=== PATIENT | female | born 1950 | race Caucasian/White ===

== ENCOUNTER 2017-07-22 12:28 | Day surgery (SDC) | payer MEDICARE, OTHER ==
[~2017-07-22 12:28] MED LIST: RINGER'S SOLUTION,LACTATED 1,000 ML IV PRN
[2017-07-22] MEDS ORDERED: RINGER'S SOLUTION,LACTATED 1,000 ML IV ONE (13:44)
[2017-07-22] MEDS ORDERED: RINGER'S SOLUTION,LACTATED 1,000 ML IV PRN (14:19)
[2017-07-22] MEDS ORDERED: PANTOPRAZOLE SODIUM 40 MG in NORMAL SALINE 100 ML IV ONE (14:19)
[2017-07-22] MEDS ORDERED: PANTOPRAZOLE SODIUM 40 MG/100 ML PIGGYBACK IV ONE (14:51)
[2017-07-22 15:31] VITALS: BP 138/61
--- NOTE | 2017-07-22 19:48 | OR ---
Operative Report - Dictated Report Narrative: Operative Report Date of operation: 07/22/2017 Preoperative diagnosis: History of Dumont's esophagus Postoperative diagnosis: Findings compatible with Dumont's esophagus and gastropathy (pathology and CLOtest pending). Hiatal hernia Operation: EGD with biopsies Surgeon: Dr Morales Anesthesia: TWYLA ANTHONY CRNA Indications for procedure: The patient is a 67-year-old female referred by Dr. Angela Dunaway. She had Dumont's esophagus without dysplasia on EGD in 2006 for severe heartburn. She currently has no heartburn with omeprazole however returns immediately when she stops the medication. She is brought for surveillance Findings: Findings compatible with Dumont's esophagus. Gastropathy ( pathology and CLOtest pending) Narrative of procedure: The patient was identified preoperatively, and prior to the administration of anesthetic a multidisciplinary timeout was observed With the patient in the recumbent position, a bite-block was placed, intravenous sedation administered, and the patient's eyes covered with a towel. The flexible fiberoptic gastroscope was advanced into the posterior pharynx which appeared normal. The supraglottic larynx appeared normal. The cords appeared normal, moved well, and opposed in the midline. The scope was advanced under direct vision into the proximal esophagus which appeared normal. The esophagus appeared freely distensible with normal mucosa. The esophageal mucosa appeared normal down to the gastroesophageal junction which was noninflamed however there were several isolated islands of mucosa indicating Barretts esophagus. There was a sliding hiatal hernia. The GE junction appeared normally distensible. The scope was advanced into the stomach proper which was insufflated with air. There was cuellar gastric erythema with several fundic polyps but no irena ulcers or neoplastic lesions were appreciated including a retroflex view of the gastric fundus which did demonstrate the hiatal hernia but revealed no additional lesions. The pylorus appeared patent. The scope was advanced into the duodenal bulb which appeared normal. The scope was advanced further to the horizontal portion of the duodenum which appeared normal, specifically the villous architecture appeared well preserved and clear bile was present. The scope was slowly withdrawn through the duodenal bulb with confirmation that no active ulcer was present. The scope was withdrawn into the stomach and international representative biopsies of gastric mucosa obtained for CLOtest and pathology. The biopsy sites were seen to be hemostatic. The scope was withdrawn to above the GE junction which was biopsied to include the transition zone. The biopsy sites were seen to be hemostatic. The insufflated air was removed, the scope withdrawn from the patient, and the procedure terminated. The patient tolerated the anesthetic and procedure well without complication and was transferred back to the ambulatory surgery area awake and in stable condition. The patient remained stable throughout a period of postoperative observation, was able to tolerate po intake, and was up without assistance. I shared the operative findings with her, and she was given copies of the photographs which appear in the medical record. She was discharged home with instructions not to engage in hazardous activity today, but may return to normal activity tomorrow and advance diet as tolerated. She was given a single dose of Protonix IV prior to discharge. She is to continue medications as listed in the history and physical exam. I made arrangements to contact the patient with the biopsy reports and will make further recommendation based upon that result. Reviewed and electronically signed
== END 2017-07-22 12:29 | disposition home or self-care (01) ==
LOC: AMB 12:28
PROVIDERS: ATTEND Surgery
PROC: 0DB68ZX Excision of Stomach, Via Natural or Artificial Opening Endoscopic, Diagnostic (ICD-10-PCS; 2017-07-22)
PROC: 0DB48ZX Excision of Esophagogastric Junction, Via Natural or Artificial Opening Endoscopic, Diagnostic (ICD-10-PCS; principal; 2017-07-22 13:00)
DX: K29.70 Gastritis, unspecified, without bleeding (principal); K44.9 Diaphragmatic hernia without obstruction or gangrene; K21.9 Gastro-esophageal reflux disease without esophagitis; I50.30 Unspecified diastolic (congestive) heart failure; E78.00 Pure hypercholesterolemia, unspecified; K58.9 Irritable bowel syndrome, unspecified; G47.33 Obstructive sleep apnea (adult) (pediatric); E53.8 Deficiency of other specified B group vitamins; Z68.29 Body mass index [BMI] 29.0-29.9, adult

== ENCOUNTER 2017-07-29 08:05 | Day surgery (SDC) | payer MEDICARE, OTHER ==
[~2017-07-29 08:05] MED LIST changes: +ACETAMINOPHEN 325 MG TABLET PO PRN; +ACETYLCHOLINE CHLORIDE 20 DROP KIT IO PRN; +BUPIVACAINE HCL/PF 30 ML VIAL IJ PRN; +CYCLOPENTOLATE HCL 20 DROP BTL LEFTEYE PRN; +DEXTROSE 5%-0.5 NORMAL SALINE 1,000 ML IV PRN; +EPINEPHrine 1 MG/ML AMPUL IO PRN; +HYALURONATE SODIUM 0.4 ML DISP.SYRIN IO PRN; +HYALURONATE SODIUM 0.85 ML DISP.SYRIN IO PRN; +LIDOCAINE HCL/PF 200 MG/5 ML AMPUL TP PRN; +LIDOCAINE HCL/PF 5 ML VIAL IO PRN; +NORMAL SALINE 3 ML BOX IV PRN; -RINGER'S SOLUTION,LACTATED 1,000 ML IV PRN; +TETRACAINE HCL 150 DROP BTL OP PRN
[2017-07-29] MEDS: PHENYLEPHRINE HCL 50 DROP BTL LEFTEYE PRN ×2 (08:42→08:52)
[2017-07-29] MEDS: TROPICAMIDE 150 DROP BTL LEFTEYE PRN ×2 (08:42→08:54)
[2017-07-29] MEDS ORDERED: TROPICAMIDE 150 DROP BTL LEFTEYE ONE (09:04)
[2017-07-29] MEDS ORDERED: PHENYLEPHRINE HCL 50 DROP BTL LEFTEYE ONE (09:04)
[2017-07-29] MEDS ORDERED: RINGER'S SOLUTION,LACTATED 1,000 ML IV ONE (09:16)
[2017-07-29 11:14] VITALS: BP 110/67
== END 2017-07-29 08:06 | disposition home or self-care (01) ==
LOC: AMB 08:05
PROVIDERS: ATTEND Ophthalmology
PROC: 08RK3JZ Replacement of Left Lens with Synthetic Substitute, Percutaneous Approach (ICD-10-PCS; principal; 2017-07-29 09:25)
DX: H26.8 Other specified cataract (principal); I50.30 Unspecified diastolic (congestive) heart failure; K21.9 Gastro-esophageal reflux disease without esophagitis; E78.00 Pure hypercholesterolemia, unspecified; G47.33 Obstructive sleep apnea (adult) (pediatric); E53.8 Deficiency of other specified B group vitamins; Z68.29 Body mass index [BMI] 29.0-29.9, adult

== ENCOUNTER 2019-08-04 08:32 | Inpatient (IN) ==
--- NOTE | 2019-07-29 07:56 | ANES ---
Anesthesia Pre Procedure Eval HOME MEDICATIONS Cetirizine HCl [Zyrtec] 10 mg PO DAILY 07/18/17 [Last Taken 07/15/18] Cholecalciferol (Vitamin D3) [Vitamin D] 5,000 unit PO DAILY 07/18/17 [Last Taken 07/15/18] Cyanocobalamin (Vitamin B-12) [Vitamin B-12] 1,000 mcg PO DAILY 07/18/17 [Last Taken 07/15/18] Dorzolamide HCl [Trusopt] 1 drp OP TID 07/18/17 [Last Taken 07/15/18] Multivitamins [Multivitamin Nolan] 1 cap PO DAILY 07/18/17 [Last Taken 07/15/18] psyllium seed (sugar) 1 tbs PO DAILY g 06/11/18 [Last Taken 07/15/18] cholestyramine-aspartame 4 gram oral powder 4 g PO DAILY #210 g 12/15/18 [Last Taken Unknown] furosemide 40 mg tablet 40 mg PO DAILY PRN #20 tab 01/07/19 [Last Taken Unknown] pentosan polysulfate sodium 100 mg capsule 100 mg PO BID #60 cap 01/07/19 [Last Taken Unknown] oxybutynin chloride 5 mg tablet 5 mg PO DAILY #30 tab 01/19/19 [Last Taken Unknown] simvastatin 10 mg tablet 10 mg PO DAILY #90 tab 02/10/19 [Last Taken Unknown] omeprazole 20 mg tablet,delayed release 20 mg PO DAILY tab 07/24/19 [Last Taken Unknown] Allergies/Adverse Reactions: Allergies Allergy/AdvReac Type Severity Reaction Status Date / Time amitriptyline AdvReac Mild dry mouth, Verified 07/24/19 14:02 no taste morphine AdvReac Mild n/v Verified 07/24/19 14:02 oxybutynin AdvReac Mild dry mouth Verified 07/24/19 14:02 Penicillins AdvReac Mild itchy, rash Verified 07/24/19 14:02 nuts Allergy Severe tongue Uncoded 07/16/18 09:08 swells - Planned Procedure Planned Procedure: Right Arthroplasty Total Knee Medication List Reviewed:: Yes Allergies Verified: Yes Medical History (Last Reviewed 07/29/19 @ 07:54 by Freddy Fernandez CRNA) Bilateral primary osteoarthritis of knee (Chronic) Insomnia (Chronic) Bilateral knee pain (Chronic) Low back pain (Chronic) Overactive bladder (Chronic) Vitamin B12 deficiency (Chronic) Vitamin D deficiency (Chronic) Diastolic heart failure (Chronic) Echo 12/05/17: EF 60%, mild LVH, RV mild dilated, mild TR, pulm HTN with RVSP 47, trace KS and diastolic dysfunction. Pulmonary HTN (Chronic) VERONICA on CPAP (Chronic) 9 cm H2O, heated humidification comfort technology Hyperlipidemia (Chronic) GERD (gastroesophageal reflux disease) (Chronic) Influenza vaccination declined Onset Date: ~06/11/18 will receive at pharmacy dysgenusia Onset Date: 02/16/14 Dumont's esophageal ulceration Onset Date: Unknown DJD (degenerative joint disease) Onset Date: Unknown Diastolic heart failure Onset Date: ~2012 Eczema Onset Date: Unknown Gastroesophageal reflux Onset Date: Unknown Glaucoma Onset Date: Unknown Hernia, hiatal Onset Date: Unknown Hypercholesterolemia Onset Date: Unknown Irritable bowel syndrome Onset Date: 04/16/16 VERONICA on CPAP Onset Date: 12/12/17 Obstructive sleep apnea Onset Date: 03/25/13 Overactive bladder Onset Date: Unknown Pulmonary HTN Onset Date: 12/12/17 Rhinitis, allergic Onset Date: 07/27/16 Rhinitis, chronic Onset Date: 07/27/16 Venous insufficiency Onset Date: 12/01/14 Vitamin B12 deficiency Onset Date: 04/06/13 Calculus of kidney Onset Date: Unknown 1991,1994,1997 Cataract Onset Date: Unknown bilateral, resolved Cystitis Onset Date: 06/01/11 Diverticulitis of colon Onset Date: Unknown Edema Onset Date: 12/01/14 Gastritis Onset Date: Unknown Lymphadenopathy of left cervical region Onset Date: 01/12/14 Sinusitis, acute Onset Date: 08/03/15 Smell or taste sensation disturbance Onset Date: 10/07/13 Tendinitis Onset Date: 12/05/13 Surgical History (Last Reviewed 07/29/19 @ 07:54 by Freddy Fernandez CRNA) H/O arthroscopic knee surgery Onset Date: 07/24/05 Dr Metz-left H/O colposcopy with cervical biopsy Onset Date: 05/08/06 dr. chen- benign gastric mucosa, moderate chronic gastritis, benign sigmoid- rectum mucosa, mild chronic inflammation History of cataract extraction Onset Date: ~07/29/17 Dr. Webb. bilateral History of colonoscopy Onset Date: 07/16/18 05/08/06 Antoinette-benign sigmoid rectum mucosa. 8/25/08 Andrew-diverticulosis. Recheck 7-10 yrs. 07/16/18 Andrew-sigmoid diverticulosis. Recheck 10 yrs. History of esophagogastroduodenoscopy (EGD) Onset Date: 07/22/17 Antoinette-04/2006 Dumont's, no dysplasia. 05/07/07 no dysplasia. 05/18/09-no dysplasia. Andrew-07/22/17-clotest negative. Mod gastritis. History of salpingo-oophorectomy Onset Date: ~2000 bilateral History of total abdominal hysterectomy Onset Date: ~10/2000 Status post tonsillectomy and adenoidectomy Onset Date: Unknown Tubal ligation status Onset Date: ~1975 dilation and curretage Onset Date: 2000 1984, 10/2000 Family History (Last Reviewed 07/29/19 @ 07:54 by Freddy Fernandez CRNA) Brother Alive and well Father , age 65-lung cancer Cancer lung cancer Mother , age 88-COPD COPD (chronic obstructive pulmonary disease) Sister Alive and well Daughter Alive and well Son Alive and well - Family Anesthesia History Family History:: no untoward family reactions to anesthesia - Airway/Neck/Teeth Within Normal Limits:: Yes Teeth Condition: intact Neck Exam: limited range of motion Mallampatti Score: 3 Thyromental (T-M) distance: > 6 cm Mandibulo Hyoid distance: > 3 cm - Respiratory Respiratory Physical: lungs clear Smoking Status: Never smoker Sleep Apnea currently treated: Yes Sleep Apnea by current assessment: Yes - Cardiovascular Tolerate Activity: Fair Heart Sounds: S1 & S2, Regular - Anesthesia Assessment and Plan ASA Class: PS, II Anesthesia Type Plan: Spinal - rt adductor canal block for postop analgesia Planned difficult intubation/equipment available: No
[~2019-08-04 08:32] MED LIST changes: -ACETAMINOPHEN 325 MG TABLET PO PRN; -ACETYLCHOLINE CHLORIDE 20 DROP KIT IO PRN; -BUPIVACAINE HCL/PF 30 ML VIAL IJ PRN; -CYCLOPENTOLATE HCL 20 DROP BTL LEFTEYE PRN; -DEXTROSE 5%-0.5 NORMAL SALINE 1,000 ML IV PRN; -EPINEPHrine 1 MG/ML AMPUL IO PRN; -HYALURONATE SODIUM 0.4 ML DISP.SYRIN IO PRN; -HYALURONATE SODIUM 0.85 ML DISP.SYRIN IO PRN; +ISOPROPYL ALCOHOL 480 APPL BTL MC ONE; -LIDOCAINE HCL/PF 200 MG/5 ML AMPUL TP PRN; -LIDOCAINE HCL/PF 5 ML VIAL IO PRN; -NORMAL SALINE 3 ML BOX IV PRN; +ROPIVACAINE HCL/PF 100 MG, EPINEPHrine 0.2 MG, KETOROLAC TROMETHAMINE 30 MG in NORMAL S... IJ PRN; -TETRACAINE HCL 150 DROP BTL OP PRN; +TRANEXAMIC ACID 1,000 MG in NORMAL SALINE 100 ML IV PRN; +ceFAZolin SODIUM 1 GM VIAL IV PRN; +ceFAZolin SODIUM 1 GM VIAL ONE
[2019-08-04] MEDS: RINGER'S SOLUTION,LACTATED 1,000 ML IV PRN ×3 (09:10→12:37)
[2019-08-04] MEDS ORDERED: fentaNYL CITRATE/PF 50 MCG/ML AMPUL ONE (10:17)
[2019-08-04] MEDS ORDERED: ONDANSETRON HCL/PF 2 MG/ML VIAL ONE (10:17)
[2019-08-04] MEDS ORDERED: LIDOCAINE HCL 20 ML VIAL ONE (10:17)
[2019-08-04] MEDS ORDERED: BUPIVACAINE HCL/EPINEPHRINE 50 ML VIAL ONE (10:18)
[2019-08-04] MEDS ORDERED: PROPOFOL VIAL IV ONE (10:18)
[2019-08-04] MEDS ORDERED: ACETAMINOPHEN 500 MG TABLET PO PRN (13:22)
[2019-08-04] MEDS ORDERED: HYDROmorphone HCL 1 MG/ML DISP.SYRIN IV PRN (13:22)
[2019-08-04] MEDS ORDERED: MAGNESIUM HYDROXIDE 30 ML UDC PO PRN (13:22)
[2019-08-04] MEDS ORDERED: MAG HYDROX/ALUMINUM HYD/SIMETH 30 ML UDC PO PRN (13:22)
[2019-08-04] MEDS ORDERED: NORMAL SALINE 1,000 ML IV PRN (13:22)
[2019-08-04] MEDS ORDERED: FUROSEMIDE 40 MG TABLET PO PRN (13:24)
--- NOTE | 2019-08-04 13:53 | ANES ---
Post Anesthesia Discharge - Transfer of Care Transfer of Care handoff given to nurse: Yes - Discharge from PACU Discharge from PACU when meets criteria: Yes - Discharge to ASU Discharge to ASU-no complications/pt stable: Yes
--- NOTE | 2019-08-04 13:55 | ANES ---
Anesthesia Procedure Note Procedure Note: ANESTHESIA PROCEDURE NOTE Date of Procedure: 08/04/2019 Time of procedure: 08/19/2004. Performed by: Josh San CRNA Brick Chimney Supervisor: None. Preprocedure diagnosis: Right knee degenerative joint disease. Post procedure diagnosis: Same. Procedure: Right ultrasound guided adductor canal block for postoperative analgesia. Indications: The patient is a 69-year-old female, requesting right ultrasound- guided abductor canal nerve block for postoperative analgesia related to right total knee arthroplasty. Findings: See below. Details of the procedure: The tissue over the intended target site was cleansed with ChloraPrepand draped in a sterile fashion. 2 ml Lidocaine 1 % was infiltrated to the skin and subcutaneous tissue at the intended target site. Under sterile technique and ultrasound guidance a 20-gauge block needle was inserted through the right sartorius muscle to the saphenous nerve just anterior and medial to the superficial femoral artery and vein. 15 mL's of 0.5% bupivacaine plus epinephrine 1-200,000 was injected after negative aspiration for blood. Needle tip and spread of local anesthetic surrounding the saphenous nerve was observed throughout the injection with real time ultrasound visualization. The needle was then removed intact. No complications were noted. The images were retained in the Hospital medical database. EBL: Minimal. Fluids: N/A. Specimen: N/A. Post procedure condition: The patient tolerated the procedure well. No complications were noted. Thank you for this consultation. Josh San CRNA
[2019-08-04] MEDS: oxyCODONE HCL/ACETAMINOPHEN 1 TAB TABLET PO PRN ×2 (14:59→20:10)
[2019-08-04] MEDS: DORZOLAMIDE HCL 100 DROP BTL OP SCH (16:42)
[2019-08-04] MEDS ORDERED: METOPROLOL TARTRATE 25 MG TABLET PO ONE (17:40)
--- NOTE | 2019-08-04 18:13 | OR ---
Operative Report - Dictated Report Narrative: Date: 08/04/2019 Preoperative diagnosis: Right knee degenerative joint disease. Postoperative diagnosis: Right knee degenerative joint disease. Procedure: Right total knee arthroplasty. Surgeon: Jimmie Caballero M.D. Act Tutor: Vianca Ferguson PA-C Anesthesia: Spinal with regional block and local periarticular joint injection. Complications: None Specimens: Bone for disposal. Estimated blood loss: Minimal. Tourniquet time: 61 minutes at 275 millimeters of mercury. Retained implants: Depuy Attune size 5 standard lugged cemented posterior stabilized femoral component. Size 5 rotating bearing cemented tibial platform. 5 by 6 millimeter posterior stabilized cross-linked tibial insert. 35 millimeter medialized patella button. Indications: Marianna is a 69-year-old female who has been followed in my clinic for period of time with significant complaints of right knee pain consistent with arthritic changes. They had failed conservative measures including but not limited to activity modification, passage of time, medications, and other conservative measures. Patient wished to proceed with surgical treatment. The risks, benefits, and alternatives were discussed in clinic. The risks of , blood clots, bleeding, infection, nerve/tendon blood vessel/ injury, malposition of components, intraoperative fracture, postoperative limited range of motion, persistent pain, failure of components, and need for additional procedures. Patient wished to proceed consent was obtained after answering all questions. Procedure: After marking the correct extremity on the floor, the patient was taken to the operating room. A timeout was performed. IV antibiotics co nsisting of 1 g of Ancef were administered prior to the procedure. A regional followed by spinal anesthetic was induced by anesthesia. on the operative table with all bony prominences well-padded. Zee catheter was placed and a bump was placed under the operative side buttock. SCDs and VIANCA hose were utilized on the nonoperative leg. A well-padded tourniquet was applied to the operative thigh. The operative leg was then pre-scrubbed with alcohol prepped and draped in a standard sterile fashion. After exsanguinating the extremity with an Esmarch bandage, the tourniquet was inflated. After marking out the anterior knee for standard incision centered over the patella, the skin was incised and dissected down to the joint retinaculum. The joint retinaculum was marked out as well as the horizontal axis of the patella, and a standard medial parapatellar arthrotomy was then made. The most proximal aspect of the quadriceps tendon and the patella tendon insertion were protected from release. A partial synovectomy was performed as well as a resection of the infrapatellar fat pad. The distal femoral fat pad proximal to the trochlea was also resected using cautery. The soft tissues were elevated off the medial aspect of the proximal tibia using a Mendoza elevator ensuring that we did not transect the medial collateral ligament. Upon initial evaluation range of motion was approximately 0 degrees to 130 degrees of flexion. There were signs of advanced arthrosis in the medial and patellofemoral joint spaces. There were large marginal osteophytes which were removed with a rongeur. The knee was hyperflexed and the patella was tucked laterally. Protecting the surrounding soft tissues with Homans, an entry drill was placed down the femoral canal using Whitesides line for guidance into the entry point. The intramedullary femoral alignment sofia was utilized in order to cut the distal femur in 5 of valgus resecting 9 millimeters of bone. Next the distal femur was sized to a size 5 standard. An anterior referencing guide was utilized to place the distal femoral cutting block in 3 of external rotation. This was pinned into place. The rotation was confirmed both visually and based on anatomic landmarks. The 4 in 1 cutting jig of the appropriate size was utilized in order to make all bony cuts. Retractors were utilized in order to protect surrounding soft tissues. This cut did not result in any excessive notching. We then cut the box centered over the distal femur. This allowed for resection of the anterior and posterior cruciate ligaments. I then turned my attention to the preparation of the tibia. Using an extra medullary tibial alignment sofia, 3 millimeters of bone was resected off the medial articular surface. This was made perpendicular to the mechanical axis of the joint with the alignment sofia centered over the ankle mortise. The alignment sofia was parallel to the mechanical axis, centered over the medial one third of the tibial tubercle, paralleling the anterior surface of the tibia. We then turned our attention to the remaining meniscus and soft tissues. These were removed while protecting the surrounding ligaments and soft tissues. The marginal osteophytes off the anterior, posterior, medial, lateral aspects of the femur and tibia were removed. The tibia was sized out to a size 5. Next the tibia was drilled and punched in an externally rotated position as confirmed with a drop sofia. Next the trial femur and a series of tibial inserts were utilized in order to allow for full extension and maximal flexion. It was found that a 6 millimeter insert gave the best range of motion and stability at multiple flexion points as well as at full extension there was less than 2 mm of gapping both medially and laterally. There is minimal anterior translation with the knee at 90 of flexion and no signs of being able to dislocate the knee. The patella was then prepared. The initial thickness was 22 millimeters. This was reamed down to 12 millimeters parallel to the anterior surface of the patella. It was sized out to a size 35 mm medialized patella button. This was then drilled and trialed. Without any medial restraint the patella tracked appropriately and did not sublux or dislocate. At this point, it was felt these were the appropriate sized implants and all trials were removed. The standard periarticular joint injection consisting of ropivacaine, Toradol, and epinephrine were injected into the periarticular joint tissues. The bony surfaces were thoroughly irrigated with a pulsatile-suction saline irrigation device. A bone plug from the prior resected anterior chamfer cut was placed into the drill hole at the distal femur. The bony surfaces were then dried in preparation for placement of the implants. The cement was vacuum mixed per the mailing machine operator's instructions. The cement was placed on the dry bony surfaces and posterior aspect of the implants. The implants were impacted into place, removing all extruded cement. At this point anesthesia administered tranexamic acid per protocol intravenously. The knee was placed in extension with axial loading with the trial insert while the cement cured. A dilute 0.35% betadyne-saline solution was used to irrigate the knee and allowed to sit in the knee while the cement cured. Once the cement cured, all remaining extruded cement was removed. The knee was placed through a range of motion with the trial insert to ensure appropriate range of motion and stability. Final range of motion was approximately 0 to 130 degrees. The knee was again thoroughly irrigated with pulsatile saline lavage. The final polyethylene insert was then impacted into place ensuring no retained soft tissues. The remaining periarticular joint injection was injected. The knee was then packed with lap sponges which were soaked with dilute betadyne solution and the tourniquet was let down. Pressure was held for approximately 2 minutes and then hemostasis was obtained using electrocautery to coagulate any bleeding vessels. The knee was then placed over a triangle and the arthrotomy was closed with interrupted #1 Vicryl after thoroughly irrigating the joint. The deep and subcutaneous tissues were closed with interrupted oh and 3-0 Vicryl respectively. Skin was closed with a running subcutaneous 3-0 Monocryl and Prineo dressing. 4 x 4's, ABD, Sof-Rol, and a full leg Stan wrap were applied. All sponge, needle, blade, and instrument counts were correct prior to closing the wounds. Postoperative condition: The patient was awoken and transferred to the postanesthesia care unit in stable condition. Plan is to be admitted to the inpatient medical/surgical floor postoperatively for 24 hours of IV antibiotics, physical therapy, occupational therapy, and medical co-management. Patient will be weightbearing as tolerated with range of motion as tolerated. DVT prophylaxis will be with SCDs, VIANCA hose, and pharmacological anticoagulation. Anticipated hospital stay is approximately 2-4 days.
[2019-08-04] MEDS ORDERED: SIMVASTATIN 20 MG TABLET ONE ×2 (20:13)
[2019-08-04] MEDS: ceFAZolin SODIUM 1 GM in DEXTROSE 5 % IN WATER 50 ML IV SCH ×2 (20:15)
[2019-08-04] MEDS ORDERED: SIMVASTATIN 10 MG TABLET PO SCH (21:00)
[2019-08-04] MEDS: SENNOSIDES/DOCUSATE SODIUM 1 TAB TABLET PO SCH (22:43)
[2019-08-05] MEDS: oxyCODONE HCL/ACETAMINOPHEN 1 TAB TABLET PO PRN ×5 (00:14→21:29)
[2019-08-05] MEDS: ceFAZolin SODIUM 1 GM in DEXTROSE 5 % IN WATER 50 ML IV SCH ×4 (04:42→11:28)
[2019-08-05] MEDS: ONDANSETRON HCL/PF 2 MG/ML VIAL IV PRN ×2 (05:37→13:38)
[2019-08-05 06:33] LABS: Hematocrit 33.8 % (37.0-47.0); Hemoglobin 12.1 gm/dL (12.5-16.0); Mean Cell Volume 99.4 fl (78-100); Mean Corpuscular Hemoglobin 35.6 pg (27-31); Mean Corpuscular Hgb Conc 35.8 g/dl (32-36); Mean Platelet Volume 9.1 fl (8-12.5); Platelet Count 144 K/mm3 (150-450); Red Cell Distribution Width 11.5 % (11.5-14.0); White Blood Count 7.3 K/mm3 (4.0-10.5)
[2019-08-05 06:41] LABS: Anion Gap 10.9 mmol/L (6.8-13.8); BUN/Creatinine Ratio 16.7 (9.0-21.6); Calcium * 9.4 mg/dL (7.9-10.9); Carbon Dioxide 26.8 mmol/L (24-32.6); Estimated Creat Clear 68.4; Potassium 3.7 mmol/L (3.4-4.6)
[2019-08-05] MEDS: DORZOLAMIDE HCL 100 DROP BTL OP SCH ×3 (08:33→17:40)
[2019-08-05] MEDS ORDERED: PANTOPRAZOLE SODIUM 20 MG TABLET.DR PO SCH (09:00)
[2019-08-05] MEDS ORDERED: OXYBUTYNIN CHLORIDE 5 MG TABLET PO SCH (09:00)
[2019-08-05] MEDS: OXYBUTYNIN CHLORIDE 5 MG TABLET PO SCH (09:50)
[2019-08-05] MEDS: OMEPRAZOLE 20 MG CAPSULE.SA PO SCH (09:50)
[2019-08-05] MEDS: LORATADINE 10 MG TABLET PO SCH (09:52)
[2019-08-05] MEDS: CYANOCOBALAMIN 1,000 MCG TABLET PO SCH (09:52)
[2019-08-05] MEDS: CHOLECALCIFEROL 5,000 UNIT TABLET PO SCH (09:52)
--- NOTE | 2019-08-05 11:31 | PN ---
Subjective - Date and Time Seen Date: 08/05/19 Time: 11:19 Subjective Narrative: No events overnight. Nausea and vomiting this morning, resolved with Zofran. Pain controlled. Objective - Vitals Vitals: Last Vital Signs Temp 36.7 C 08/05/19 08:00 Pulse 68 08/05/19 08:00 Resp 20 08/05/19 08:00 BP 136/89 08/05/19 08:00 Pulse Ox 96 08/05/19 08:00 - Abnormal Lab Findings Abnormal Lab Findings: Abnormal Lab Results 08/05/19 08/05/19 Range/Units 06:10 06:10 RBC 3.40 L (4.2-5.4) M/mm3 Hgb 12.1 L (12.5-16.0) gm/dL Hct 33.8 L (37.0-47.0) % MCH 35.6 H (27-31) pg Plt Count 144 L (150-450) K/mm3 Random Glucose 127 H (70-110) mg/dL - Exam Exam Narrative: Gen: alert, oriented Resp: breathing nonlabored on room air MSK: RLE--> dressings clean and intact, sensation intact throughout, motor intact, cap refill brisk Cauti Physician Documentation - Urinary Catheter Management Urethral (Zee) Date of Insertion: 08/04/19 Time of Insertion: 11:30 Date of Removal: 08/05/19 Time of Removal: 08:30 Assessment/Plan - Problems/Diagnosis (1) Bilateral primary osteoarthritis of knee Problem: Chronic Narrative: 69-year-old female status post right total knee arthroplasty, postop day 1. -Weightbearing as tolerated, range of motion as tolerated. -Regular diet -Oral pain meds with IV for breakthrough -Zofran for nausea/vomiting -PT/OT -DVT prophylaxis: Lovenox, SCDs/VIANCA hose -Disposal: Continue inpatient care, discharge pending passing goals with PT.
[2019-08-05] MEDS: ENOXAPARIN SODIUM 40 MG/0.4 ML SYRG SC SCH (11:35)
[2019-08-05] MEDS: ONDANSETRON HCL 8 MG TABLET PO PRN (16:19)
[2019-08-05] MEDS ORDERED: SIMVASTATIN 10 MG TABLET PO SCH (21:00)
[2019-08-05] MEDS: SENNOSIDES/DOCUSATE SODIUM 1 TAB TABLET PO SCH (21:30)
[2019-08-06] MEDS: ONDANSETRON HCL 8 MG TABLET PO PRN ×2 (00:23→08:35)
[2019-08-06] MEDS: oxyCODONE HCL/ACETAMINOPHEN 1 TAB TABLET PO PRN ×4 (02:20→13:04)
[2019-08-06 06:39] LABS: Anion Gap 11.8 mmol/L (6.8-13.8); BUN/Creatinine Ratio 12.5 (9.0-21.6); Calcium * 9.5 mg/dL (7.9-10.9); Potassium 3.8 mmol/L (3.4-4.6)
[2019-08-06 06:43] LABS: Hematocrit 31.7 % (37.0-47.0); Mean Cell Volume 101.3 fl (78-100); Mean Corpuscular Hemoglobin 35.1 pg (27-31); Mean Corpuscular Hgb Conc 34.7 g/dl (32-36); Mean Platelet Volume 9.1 fl (8-12.5); Platelet Count 146 K/mm3 (150-450); Red Blood Count 3.13 M/mm3 (4.2-5.4); Red Cell Distribution Width 11.8 % (11.5-14.0); White Blood Count 6.6 K/mm3 (4.0-10.5)
[2019-08-06] MEDS: OMEPRAZOLE 20 MG CAPSULE.SA PO SCH (07:09)
[2019-08-06] MEDS: DORZOLAMIDE HCL 100 DROP BTL OP SCH ×4 (07:10→13:05)
[2019-08-06] MEDS: CHOLECALCIFEROL 5,000 UNIT TABLET PO SCH (08:24)
[2019-08-06] MEDS: CYANOCOBALAMIN 1,000 MCG TABLET PO SCH (08:24)
[2019-08-06] MEDS: OXYBUTYNIN CHLORIDE 5 MG TABLET PO SCH (08:25)
[2019-08-06] MEDS: LORATADINE 10 MG TABLET PO SCH (08:25)
[2019-08-06] MEDS: ENOXAPARIN SODIUM 40 MG/0.4 ML SYRG SC SCH (11:23)
--- NOTE | 2019-08-06 14:09 | DS ---
(1) Status post total right knee replacement Problem: Acute Date of Discharge:: 08/06/19 Hospital Course: -69-year-old female postop day 2 status post right total knee arthroplasty. Patient is had an uncomplicated stay in the hospital. She did have mild nausea after ambulating on postop day 1. This required her to maintain in the hospital overnight. However this is resolved with p.o. medications. Patient's pain is under control with p.o. medication. Her exam reveals right lower extremity sensation intact light touch, distal capillary refill brisk, 4+/5 knee flexion extension, pernio bandage in place without any significant erythema or drainage. Patient will be discharged home continue use of an assistive device. She will follow-up with orthopedic outpatient clinic in 2 weeks postoperative. She will call with any acute questions or concerns. She can continue with the following recommendations: 69-year-old female status post right total knee arthroplasty, postop day 2. -Weightbearing as tolerated, range of motion as tolerated, assistive device PRN -Regular diet -Oral pain meds Percocet 5/325 mg 1-2 tabs every 4 to 6 hours as needed for pain p.o. -Zofran for nausea/vomiting -PT/OT, progress per protocol -DVT prophylaxis: Lovenox for 10 days postoperatively followed by 325 mg aspirin daily for 6 weeks VIANCA hose -Disposal: Plan to discharge home, continue outpatient physical therapy Procedures Performed: see notes below List Procedures: Right total knee arthroplasty Results and Findings: Lab Pending Results 08/05/19 06:10: WBC 7.3, RBC 3.40 L, Hgb 12.1 L, Hct 33.8 L, MCV 99.4, MCH 35.6 H, MCHC 35.8, RDW 11.5, Plt Count 144 L, MPV 9.1 08/05/19 06:10: Sodium 135, Plasma Sodium 135, Potassium 3.7, Chloride 101, Carbon Dioxide 26.8, Anion Gap 10.9, BUN 10, Creatinine 0.60, Est GFR (Non-Af Amer) 105, BUN/Creatinine Ratio 16.7, Random Glucose 127 H, Calcium 9.4 08/06/19 06:00: WBC 6.6, RBC 3.13 L, Hgb 11.0 L, Hct 31.7 L, MCV 101.3 H, MCH 35.1 H, MCHC 34.7, RDW 11.8, Plt Count 146 L, MPV 9.1 08/06/19 06:00: Sodium 138, Plasma Sodium 138, Potassium 3.8, Chloride 102, Carbon Dioxide 28.0, Anion Gap 11.8, BUN 9, Creatinine 0.72, Est GFR (Non-Af Amer) 85, BUN/Creatinine Ratio 12.5, Random Glucose 117 H, Calcium 9.5 Discharge Location: Home Disposition: Home self-care Condition: Good Discharge Activity: Activity as tolerated, Weight bearing - Assistive device PRN Discharge Diet: General/regular food Referrals: Jimmie Caballero MD [Staff Physician] - 08/17/19 9:00 am Problem Oriented Discharge Instructions to Patient/Family: Total Knee Replacement, Care After, [id number] Print Language (Zimbabwean or Cameroonian Available): [place]an Additional Patient Instructions (free text): Physical therapy scheduled at [facility] on Saturday08/07/19 at 7:00 am. Follow-up with Dr. Caballero in the office on 08-17-19 at 9:00am. Prescriptions (Any new or edited meds): Enoxaparin Sodium [Lovenox] 40 mg SC Q24H #8 disp.syrin Transmission Status: Pending to [facility] #[id number] oxyCODONE HCL/ACETAMINOPHEN [Percocet 5 MG/325 MG] 1 - 2 tab PO Q4H PRN #90 tab PRN Reason: Severe Pain (Pain Scale 7-10) Transmission Status: Sent to [facility] #[id number] Ondansetron HCl [Zofran] 8 mg PO Q8H PRN #30 tab PRN Reason: Nausea And Vomiting Transmission Status: Pending to [facility] #[id number] Complete Home Medications List: Complete Home Medication List: Cetirizine HCl [Zyrtec] 10 mg PO DAILY 07/18/17 Cholecalciferol (Vitamin D3) [Vitamin D3] 5,000 unit PO DAILY 07/18/17 Cyanocobalamin (Vitamin B-12) [Vitamin B-12] 1,000 mcg PO DAILY 07/18/17 Dorzolamide HCl [Trusopt] 1 drp OP TID 07/18/17 Multivitamins [Multivitamin Nolan] 1 cap PO DAILY 07/18/17 psyllium seed (sugar) 1 tbs PO DAILY g 06/11/18 cholestyramine-aspartame 4 gram oral powder 4 g PO DAILY #210 g 12/15/18 furosemide 40 mg tablet 40 mg PO DAILY PRN #20 tab 01/07/19 pentosan polysulfate sodium 100 mg capsule 100 mg PO BID #60 cap 01/07/19 oxybutynin chloride 5 mg tablet 5 mg PO DAILY #30 tab 01/19/19 simvastatin 10 mg tablet 10 mg PO DAILY #90 tab 02/10/19 omeprazole 20 mg tablet,delayed release 20 mg PO DAILY tab 07/24/19 Enoxaparin Sodium [Lovenox] 40 mg SC Q24H #8 disp.syrin 08/06/19 Ondansetron HCl [Zofran] 8 mg PO Q8H PRN #30 tab 08/06/19 oxyCODONE HCL/ACETAMINOPHEN [Percocet 5 MG/325 MG] 1 - 2 tab PO Q4H PRN #90 tab 08/06/19 Amb Orders for Discharge: PT Evaluation and Treatment* Location: None Selected
[2019-08-06 15:24] VITALS: BP 125/56
== END 2019-08-06 15:02 | disposition home or self-care (01) | DRG 470 ==
LOC: MS 08:32 → EDSTATUS 09:45
PROVIDERS: ADMIT Orthopaedic Surgery; ATTEND Orthopaedic Surgery
DX: M17.0 Bilateral primary osteoarthritis of knee; E53.8 Deficiency of other specified B group vitamins; I50.32 Chronic diastolic (congestive) heart failure; I27.20 Pulmonary hypertension, unspecified; E55.9 Vitamin D deficiency, unspecified; G47.33 Obstructive sleep apnea (adult) (pediatric); R11.2 Nausea with vomiting, unspecified
CPT/HCPCS: 36415; 73560; 80048; 85027; 94660; 97116; 97161; 97165; 97530; 97535; J2405